=== PATIENT | male | born 1960 | race Caucasian/White ===

== ENCOUNTER 2018-08-19 21:12 | Emergency (ER) | payer BC ==
[~2018-08-19] VITALS: Ht 167.6 cm; Wt 86.2 kg
[2018-08-19 21:24] VITALS: BP 140/82
--- NOTE | 2018-08-19 21:24 | NUR ---
TO BED # 03 AMBULATORY
[2018-08-19] MEDS ORDERED: IBUPROFEN 800 MG TAB PO ONE (21:40)
--- NOTE | 2018-08-19 21:40 | NUR ---
DR SORENSEN AT BEDSIDE
--- NOTE | 2018-08-19 21:40 | NUR ---
57/M BIB DAUGHTER, C/O BODYACHES X1 WEEK. PT ALSO C/O CHRONIC R KNEE AND LOWER BACK PAIN. REPORTS SUBJECTIVE FEVER AND NAUSEA. DENIES COUGH, VOMITING, CP, SOB, CONSTIPATION, DIARRHEA OR DYSURIA. AOX4, SKIN NORMAL WARM AND DRY, RR EVEN AND UNLABORED. HX CARDIAC STENT, HLD
[2018-08-19 22:05] LABS: BASOPHILS # (AUTO) 0.1 K/uL (0.00-0.22); BASOPHILS % (AUTO) 0.7 % (0.0-2.0); EOSINOPHILS # (AUTO) 0.1 K/uL (0-0.4); EOSINOPHILS % (AUTO) 0.6 % (0.0-4.0); LYMPHOCYTES # (AUTO) 1.1 K/uL (2.0-11.5); LYMPHOCYTES % (AUTO) 12.3 % (20.5-51.1); MEAN CORPUSCULAR HEMOGLOBIN 30 pg (27-31); MEAN CORPUSCULAR HGB CONC 34 g/dL (33-37); MEAN CORPUSCULAR VOLUME 86.4 fL (80-94); MONOCYTES # (AUTO) 0.8 K/uL (0.8-1.0); MONOCYTES % (AUTO) 9.1 % (1.7-9.3); NEUTROPHILS % (AUTO) 77.3 % (42.2-75.2); PLATELET COUNT (AUTO) 164 K/uL (140-450); RED BLOOD CELL COUNT(AUTO) 5.09 MIL/uL (4.20-6.10); RED CELL DISTRIBUTION WIDTH 13.7 % (11.6-13.7); WHITE BLOOD COUNT (AUTO) 9.1 K/uL (4.8-10.8)
[2018-08-19 22:15] LABS: ANION GAP 14.5 (8-16); CARBON DIOXIDE 25.4 mmol/L (21-32); CREATININE 1.1 mg/dL (0.7-1.3); POTASSIUM 3.9 mmol/L (3.5-5.1)
[2018-08-19 22:22] LABS: ALBUMIN 3.4 g/dL (3.4-5.0); TOTAL BILIRUBIN 0.6 mg/dL (0.0-1.0)
[2018-08-19 22:23] LABS: APPEARANCE,URINE CLEAR (CLEAR); BILIRUBIN,URINE NEGATIVE (NEGATIVE); BLOOD, URINE NEGATIVE (NEGATIVE); COLOR,URINE YELLOW (YELLOW); LEUKOCYTE ESTERASE ,URINE NEGATIVE (NEGATIVE); NITRITE, URINE NEGATIVE (NEGATIVE); PH,URINE 7.5 (5.0-9.0); UGLUCOSE NEGATIVE (NEGATIVE)
[2018-08-19] MEDS ORDERED: AZITHROMYCIN 250 MG TAB PO ONE (22:40)
[2018-08-19 22:56] VITALS: BP 136/81
--- NOTE | 2018-08-19 22:56 | NUR ---
Patient discharged with v/s stable. Written and verbal after care instructions given and explained. Patient alert, oriented and verbalized understanding of instructions. Ambulatory with steady gait. All questions addressed prior to discharge. ID band removed. Patient advised to follow up with PMD. Rx of AZITHROMYCIN, IBUPROFEN given. Patient educated on indication of medication including possible reaction and side effects. Opportunity to ask questions provided and answered.
== END 2018-08-19 22:56 | disposition home or self-care (01) ==
LOC: MED 21:12
DX: J18.9 Pneumonia, unspecified organism (principal); R51 Headache; F17.210 Nicotine dependence, cigarettes, uncomplicated; Z95.818 Presence of other cardiac implants and grafts
CPT/HCPCS: 36415; 71045; 80053; 81003; 85025; 87804; 99284; Q0092